=== PATIENT | male | born 1980 | race Caucasian/White ===

== ENCOUNTER 2016-03-14 16:46 | Outpatient (CLI) | payer BC | END 2016-03-14 16:47 | disposition home or self-care (01) | LOC: NAV SJFMSP 16:46 | PROVIDERS: ATTEND Family Medicine | DX: Z11.3 Encounter for screening for infections with a predominantly sexual mode of transmission (principal) | CPT/HCPCS: 86592; 87389; 87491; 87591 ==

== ENCOUNTER 2016-04-14 09:55 | Emergency (ER) | payer BC ==
[2016-04-14] MEDS ORDERED: traMADol HCl 50 MG TAB ONE (10:20)
--- NOTE | 2016-04-14 11:04 | RAD ---
RIGHT ANKLE 3 VIEWS: INDICATION: Injury, pain. FINDINGS: There is an obliquely oriented mildly displaced distal fibular fracture at the metadiaphyseal region with overlying soft tissue swelling. No obvious asymmetric widening of the mortise. IMPRESSION: Mildly displaced obliquely oriented distal fibular fracture with overlying soft tissue swelling. POS: JOHN
== END 2016-04-14 11:03 | disposition home or self-care (01) ==
LOC: NAV ERS 09:55
DX: S82.61XA Displaced fracture of lateral malleolus of right fibula, initial encounter for closed fracture (principal); F32.9 Major depressive disorder, single episode, unspecified; F17.210 Nicotine dependence, cigarettes, uncomplicated; W51.XXXA Accidental striking against or bumped into by another person, initial encounter
CPT/HCPCS: 99283